=== PATIENT | male | born 1940 | race Caucasian/White ===

== ENCOUNTER 2024-05-27 20:38 | Inpatient (IN) | payer MEDICARE, OTHER, SELFPAY ==
[2024-05-27] VITALS (14 sets, daily range): BP systolic 73–131; BP diastolic 52–92; BMI 29.3; BMI 24.3; BMI 23.6
--- NOTE | 2024-05-27 13:53 | ED.GENMED ---
ED Provider Triage
<Chel Lopez NP - Last Filed: 05/27/24 13:58>
-
Patient seen by provider in Triage?: Seen in Triage
Attestation: A medical screening examination has been initiated by a qualified medical provider. Based on the assessment performed at this time, it has been determined that an emergent medical condition may exist and the patient has been informed
that further medical evaluation and possible additional diagnostic testing may be needed.
HPI: 83-year-old male in assisted living at [facility] states he stopped taking his diuretics 4 to 6 weeks ago because he got tired of urinating so much. Presents now with swelling in his lower extremities. Denies chest pain or trouble
breathing.
Patient states 'the nurse saw my legs and my toes and she said 'you have to get that fluid out of there.' That nurse called patient's daughter to recommend that he come he come here.
GENERAL: Alert , in no apparent distress
EYE: No visual abnormalities.
NECK: Trachea midline
ENT: No visible abnormalities.
LUNGS: No acute respiratory distress
NEUROLOGICAL: Alert and oriented
SKIN: Skin intact. No visible changes.
MUSCULOSKELETAL: Moving extremities normally
PSYCH: Normal and appropriate interaction.
This is a medical evaluation conducted in person to initiate diagnostic evaluation and provide initial therapeutics. Please see further documentation by the treating clinician. Attestation: A medical screening examination has been initiated by a
qualified medical provider. Based on the assessment performed at this time, it has been determined that an emergent medical condition may exist and the patient has been informed that further medical evaluation and possible additional diagnostic
testing may be needed.
History of Present Illness
<Chel Lopez NP - Last Filed: 05/27/24 13:58>
General
Chief Complaint: Swelling
Time Seen by Provider: 05/27/24 17:55
<Modesto Massey MD - Last Filed: 05/28/24 15:29>
General
Source: patient
Exam Limitations: none
Nursing documentation reviewed up to this point in time: agreed with
History of Present Illness
History of Present Illness:
Patient with history of congestive heart failure on Lasix, presents to ED from urgent care center secondary to increased leg swelling. Patient admittedly states that he has not taken his medications, i.e. Lasix over the past 6 weeks, as he did not
wish to go the bathroom frequently. Denies coughing or shortness of breath. Denies fever or chills. Denies coughing. Denies loss of appetite. Denies recent illness.
Review of Systems
<Modesto Massey MD - Last Filed: 05/28/24 15:29>
Review of Systems
Allergies reviewed?: Yes
All Other Systems: ROS reviewed and negative except as documented in HPI and ROS
Constitutional: Reports no symptoms
EENT: Reports no symptoms
Respiratory: Reports no symptoms; Denies cough or trouble breathing
Cardiac: Reports no symptoms; Denies chest pain or palpitations
ABD/GI: Reports no symptoms
Musculoskeletal: Reports edema
Skin: Reports no symptoms
Neurological: Reports no symptoms
Phy Exam
<Modesto Massey MD - Last Filed: 05/28/24 15:29>
Physical Exam
Physical Exam:
Physical Exam
General: no apparent distress, not acutely ill. afebrile
Head: nc/at. eomi
Neck: supple. normal range of motion.
Heart: s1/s2 regular rate and rhythm, no murmur. equal radial pulses.
Lungs: no acute respiratory distress. clear bilaterally
Abdomen: normal bowel sounds. not tender.
Neuro: alert and oriented x 3. no focal neurological deficits
Skin: no rash
Psychiatric: well kept. interactive and cooperative
Extremities: LE b/l pitting edema. RLE - weeping of serosanguineous drainage noted with mild erythema, without warmth or tenderness.
Scores
<Modesto Massey MD - Last Filed: 05/28/24 15:29>
Heart Failure Risk
Heart Failure Risk Score: Yes
History of Stroke or TIA: No
History of intubation for respiratory distress: No
Heart rate on ED arrival >/= 110: Yes
SaO2 <90% on arrival on room air: No
HR >/=110 during 3min walk test (or too ill to perform test): Yes
ECG has acute ischemic changes: No
Urea >/=12mmol/L (BUN 33.6mg/dL): No
Serum CO2>/=35mmol/L: No
Troponin I or T elevated to LA Level (0.4mg/dL): No
NT-proBNP >/=5,000ng/L (5,000pg/ml): No
HF Risk Score: 2
Admission Status: MEDIUM RISK 9.2% Consider observation or discharge to home with homecare & f/u visit to PCP/[employer], or SNF for treatment
Course
<Chel Lopez NP - Last Filed: 05/27/24 13:58>
Orders/Labs/Results
Orders:
Orders
05/27/24 14:05
Complete Blood Count/With Diff Urgent
Comprehensive Metabolic Panel Urgent
Free T4 Urgent
Magnesium Urgent
Comment: ADD ON
NT-proBNP Urgent
Comment: ADD ON
TSH Reflex To Free T4 Urgent
Comment: ADD ON
05/27/24 Dinner
Cholesterol Lowering
At Your Request: Full Participation
Does patient need a safe tray?: No
Cholesterol Lowering: Sodium, 2 Gram
05/27/24 18:02
Electrocardiogram (*1) Urgent
Reason for Study: Tachycardia
EKG- Treatment ONCE
05/27/24 18:03
Add On- LAB Urgent
Tests Added?: ProBNP, magnesium
05/27/24 19:03
Electrocardiogram (*1) Urgent
Reason for Study: Tachycardia
EKG- Treatment ONCE
05/27/24 19:14
Diltiazem HCl [Cardizem] 5 mg IV NOW STA
Furosemide [Lasix] 20 mg IV NOW STA
05/27/24 19:15
Diltiazem 125 mg/125 ml Nss [Cardizem] 125 mg in 125 ml IV PER PROTOCOL
Initial dose in mg/hr, then titrate:: 5
Titrate to keep:: Heart rate 80-100 bpm
Titrate by mg/hr:: 5 mg/hr
Frequency of titrations (minutes):: 15
Maximum dose in mg/hr:: 15
Begin to taper infusion when:: Now
Taper by mg/hr:: 2.5
Frequency of taper (minutes) if patient maintains goal:: 60
Taper to off?: Yes
05/27/24 19:19
CR Chest Portable - 1 View Urgent
Comment:
Reason For Exam: swelling/sob
Reason Study Needs to be Portable: Patient Unstable
05/27/24 20:27
Admit/Transfer Patient As Directed
Co-Sign Provider:
Level of Care: Inpatient admission
Assign to:: IVU
Physician / Group: mary
Diagnosis: chf exacerbation, afib rvr
Reason for Hospitalization: chf exacerbation, afib rvr
Expected length of stay greater than two midnights?: Yes
ELOS- Estimated Length of Stay in days: 2
I certify the patient meets the requirements for IP care: Yes
Code Status As Directed
Resuscitation Status: Full Code
PRN Pain Medication Management As Directed
May give lesser potent ordered pain med per pt: Yes
preference::
Protocol:: Medication orders for pain may be administered in a
manner that supports deferring to patient preference
when the pt is:
- Requesting an ordered lesser potent pain medication.
Least to most potent pain medications are defined
as: acetaminophen < NSAID < tramadol < opioids
(morphine, oxycodone, hydromorphone).
- Requesting a lesser dose of the same medication IF
ORDERED.
- Requesting a less intrusive route of administration
if both routes are prescribed by the provider (PO <
IV).
05/27/24 21:44
Apixaban [Eliquis] 5 mg PO BID
Furosemide [Lasix] 20 mg IV NOW STA
05/27/24 21:44
VTE Contraindication Routine
VTE Mechanical Device Contraindication: Medical Contraindication
Pharmocologic Contraindication: Medical Contraindication
Activity As Directed
Activity Level: As Tolerated
I/O [Intake/ Output] As Directed
Frequency: q12h
Vital Signs As Directed
Frequency: Per unit guidelines
Weight As Directed
Frequency: Daily
05/27/24 22:00
Atorvastatin [Lipitor] 10 mg PO HS
Donepezil [Aricept] 5 mg PO HS
Tamsulosin [Flomax] 0.4 mg PO HS
05/28/24 04:17
Complete Blood Count/With Diff IN AM
Comprehensive Metabolic Panel IN AM
05/28/24 08:00
Finasteride [Proscar] 5 mg PO DAILY
Furosemide [Lasix] 40 mg IV DAILY
Prednisone [Deltasone] 5 mg PO DAILY
Abnormal Lab Results
05/27/24
14:05
RBC 3.97 L 10^6/uL
(4.70-6.10)
MCV 105.8 H fL
(80.0-94.0)
MCH 34.3 H pg
(27.0-31.0)
MCHC 32.4 L g/dL
(33.0-37.0)
Abs Immat Gran (auto) 0.1 H 10^3/uL
(0-0.05)
Absolute Lymphs (auto) 0.5 L 10^3/uL
(1.2-3.4)
Immature Gran % 1.3 H %
(0-0.5)
Neutrophils % 83.2 H %
(42.2-75.2)
Lymphocytes % 7.2 L %
(20.5-51.1)
Chloride 108 H mmol/L
(98-107)
BUN 25 H mg/dl
(9-20)
Creatinine 0.6 L mg/dL
(0.7-1.3)
Calcium 8.3 L mg/dl
(8.4-10.2)
Total Protein 5.6 L g/dl
(6.3-8.2)
TSH (Reflex) 0.46 L uIU/ml
(0.47-4.68)
05/27/24 14:05
05/27/24 14:05
Vital Signs
Initial and Last Documented VS:
Initial Vital Signs
Temp Pulse Resp BP Pulse Ox
98.1 F 72 16 131/92 97
05/27/24 13:48 05/27/24 13:48 05/27/24 13:48 05/27/24 13:48 05/27/24 13:48
Last Documented Vital Signs
Temp Pulse Resp BP Pulse Ox
97.6 F 100 18 81/52 95
05/28/24 11:59 05/28/24 12:36 05/28/24 11:59 05/28/24 12:36 05/28/24 12:30
<Modesto Massey MD - Last Filed: 05/28/24 15:29>
Orders/Labs/Results
Orders:
Orders
05/27/24 14:05
Complete Blood Count/With Diff Urgent
Comprehensive Metabolic Panel Urgent
Free T4 Urgent
Magnesium Urgent
Comment: ADD ON
NT-proBNP Urgent
Comment: ADD ON
TSH Reflex To Free T4 Urgent
Comment: ADD ON
05/27/24 Dinner
Cholesterol Lowering
At Your Request: Full Participation
Does patient need a safe tray?: No
Cholesterol Lowering: Sodium, 2 Gram
05/27/24 18:02
Electrocardiogram (*1) Urgent
Reason for Study: Tachycardia
EKG- Treatment ONCE
05/27/24 18:03
Add On- LAB Urgent
Tests Added?: ProBNP, magnesium
05/27/24 19:03
Electrocardiogram (*1) Urgent
Reason for Study: Tachycardia
EKG- Treatment ONCE
05/27/24 19:14
Diltiazem HCl [Cardizem] 5 mg IV NOW STA
Furosemide [Lasix] 20 mg IV NOW STA
05/27/24 19:15
Diltiazem 125 mg/125 ml Nss [Cardizem] 125 mg in 125 ml IV PER PROTOCOL
Initial dose in mg/hr, then titrate:: 5
Titrate to keep:: Heart rate 80-100 bpm
Titrate by mg/hr:: 5 mg/hr
Frequency of titrations (minutes):: 15
Maximum dose in mg/hr:: 15
Begin to taper infusion when:: Now
Taper by mg/hr:: 2.5
Frequency of taper (minutes) if patient maintains goal:: 60
Taper to off?: Yes
05/27/24 19:19
CR Chest Portable - 1 View Urgent
Comment:
Reason For Exam: swelling/sob
Reason Study Needs to be Portable: Patient Unstable
05/27/24 20:27
Admit/Transfer Patient As Directed
Co-Sign Provider:
Level of Care: Inpatient admission
Assign to:: IVU
Physician / Group: mary
Diagnosis: chf exacerbation, afib rvr
Reason for Hospitalization: chf exacerbation, afib rvr
Expected length of stay greater than two midnights?: Yes
ELOS- Estimated Length of Stay in days: 2
I certify the patient meets the requirements for IP care: Yes
Code Status As Directed
Resuscitation Status: Full Code
PRN Pain Medication Management As Directed
May give lesser potent ordered pain med per pt: Yes
preference::
Protocol:: Medication orders for pain may be administered in a
manner that supports deferring to patient preference
when the pt is:
- Requesting an ordered lesser potent pain medication.
Least to most potent pain medications are defined
as: acetaminophen < NSAID < tramadol < opioids
(morphine, oxycodone, hydromorphone).
- Requesting a lesser dose of the same medication IF
ORDERED.
- Requesting a less intrusive route of administration
if both routes are prescribed by the provider (PO <
IV).
05/27/24 21:44
Apixaban [Eliquis] 5 mg PO BID
Furosemide [Lasix] 20 mg IV NOW STA
05/27/24 21:44
VTE Contraindication Routine
VTE Mechanical Device Contraindication: Medical Contraindication
Pharmocologic Contraindication: Medical Contraindication
Activity As Directed
Activity Level: As Tolerated
I/O [Intake/ Output] As Directed
Frequency: q12h
Vital Signs As Directed
Frequency: Per unit guidelines
Weight As Directed
Frequency: Daily
05/27/24 22:00
Atorvastatin [Lipitor] 10 mg PO HS
Donepezil [Aricept] 5 mg PO HS
Tamsulosin [Flomax] 0.4 mg PO HS
05/28/24 04:17
Complete Blood Count/With Diff IN AM
Comprehensive Metabolic Panel IN AM
05/28/24 08:00
Finasteride [Proscar] 5 mg PO DAILY
Furosemide [Lasix] 40 mg IV DAILY
Prednisone [Deltasone] 5 mg PO DAILY
Abnormal Lab Results
05/27/24
14:05
RBC 3.97 L 10^6/uL
(4.70-6.10)
MCV 105.8 H fL
(80.0-94.0)
MCH 34.3 H pg
(27.0-31.0)
MCHC 32.4 L g/dL
(33.0-37.0)
Abs Immat Gran (auto) 0.1 H 10^3/uL
(0-0.05)
Absolute Lymphs (auto) 0.5 L 10^3/uL
(1.2-3.4)
Immature Gran % 1.3 H %
(0-0.5)
Neutrophils % 83.2 H %
(42.2-75.2)
Lymphocytes % 7.2 L %
(20.5-51.1)
Chloride 108 H mmol/L
(98-107)
BUN 25 H mg/dl
(9-20)
Creatinine 0.6 L mg/dL
(0.7-1.3)
Calcium 8.3 L mg/dl
(8.4-10.2)
Total Protein 5.6 L g/dl
(6.3-8.2)
TSH (Reflex) 0.46 L uIU/ml
(0.47-4.68)
05/27/24 14:05
05/27/24 14:05
Vital Signs
Initial and Last Documented VS:
Initial Vital Signs
Temp Pulse Resp BP Pulse Ox
98.1 F 72 16 131/92 97
05/27/24 13:48 05/27/24 13:48 05/27/24 13:48 05/27/24 13:48 05/27/24 13:48
Last Documented Vital Signs
Temp Pulse Resp BP Pulse Ox
97.6 F 100 18 81/52 95
05/28/24 11:59 05/28/24 12:36 05/28/24 11:59 05/28/24 12:36 05/28/24 12:30
<Modesto Massey MD - Last Filed: 05/28/24 15:29>
MDM/Problems Addressed
MDM/Problems Addressed:
History, exam, along with EKG concerning for new onset rapid atrial fibrillation with evidence of fluid overload. Patient will be started on Cardizem infusion along with IV Lasix. Patient will be admitted for further evaluation and treatment.
<Modesto Massey MD - Last Filed: 05/28/24 15:29>
*EKG
Interpreted by ED Provider?: Yes
EKG Intrepretation Date: 05/27/24
Heart Rate: 127
Rate: tachycardiac
Rhythm: a-fib
Kirby: normal axis
Interval: normal interval
QRS Pattern: normal QRS
*Critical Care Note
Total Time (30-74mins, 75-104mins- exclusive of procedures): Not Applicable
ED Attending Note
<Chel Lopez NP - Last Filed: 05/27/24 13:58>
-
Portions of this chart may have been created with voice recognition software.� Occasional wrong word or��sound alike� substitutions may have occurred due to the inherent limitations of voice recognition software.
Discharge Plan
Departure
Patient Disposition: Admit
Date of Disposition: 05/27/24
Time of Disposition: 19:23
Admit to: Telemetry
Presentation/result/management discussed w/ accepting MD/DO: Hospitalist
Discharge Problem:
Atrial fibrillation, rapid, Fluid overload
Interventions
Interventions:
*Risk Screen - Suicide Last Done: 05/27/24 18:20
*Neglect/Abuse Screening Last Done: 05/27/24 18:20
ED- Fall Risk Assessment Last Done: 05/27/24 19:23
*ED COVID-19 Vaccine History Last Done: 05/27/24 18:20
*Nursing Disposition Last Done: 05/27/24 21:36
ED- Cardiac Assessment Last Done: 05/27/24 19:23
ED- Pulmonary Assessment Last Done: 05/27/24 19:23
ED-Skin Assessment Last Done: 05/27/24 19:23
Discharge Date and Time
Discharge Date/Time: 05/27/24 21:36
[2024-05-27 14:14] LABS: % Basophils 0.3 % (0-2); % Eosinophils 0.8 % (0-6); % Immature Granulocytes 1.3 % (0-0.5); % Lymphocytes 7.2 % (20.5-51.1); % Monocytes 7.2 % (1.7-9.3); % Neutrophils 83.2 % (42.2-75.2); Absolute Eosinophils 0.1 10^3/uL (0-0.7); Absolute Immature Granulocytes 0.1 10^3/uL (0-0.05); Absolute Lymphocytes 0.5 10^3/uL (1.2-3.4); Absolute Monocytes 0.5 10^3/uL (0.1-0.6); Absolute Neutrophils 5.3 10^3/uL (1.4-6.5); Hemoglobin 13.6 g/dL (13.0-18.0); Mean Corp Hgb Conc. 32.4 g/dL (33.0-37.0); Mean Corpuscular Hgb 34.3 pg (27.0-31.0); Mean Corpuscular Volume 105.8 fL (80.0-94.0); Mean Platelet Volume 9.9 fL (7.4-10.4); Nucleated Red Blood Cells % 0 % (-); Platelet Count 219 10^3/uL (130-400); Red Blood Cell Count 3.97 10^6/uL (4.70-6.10); Red Cell Dist. Width 12.8 % (11.5-14.5); White Blood Cell Count 6.4 10^3/uL (4.8-10.8)
[2024-05-27 14:37] LABS: ALT (SGPT) 16 U/L (0-50); AST (SGOT) 29 U/L (17-59); Albumin 3.5 g/dl (3.5-5.0); Alkaline Phosphatase 59 U/L (38-126); Blood Urea Nitrogen 25 mg/dl (9-20); Calcium 8.3 mg/dl (8.4-10.2); Carbon Dioxide 24 mmol/L (22-30); Chloride 108 mmol/L (98-107); Glucose 99 mg/dl (70-99); Potassium 4.7 mmol/L (3.5-5.1); Sodium 140 mmol/L (135-145); Total Bilirubin 1.1 mg/dl (0.2-1.3); Total Protein 5.6 g/dl (6.3-8.2); eGFR > 60.00
[2024-05-27 18:33] LABS: Magnesium 1.9 mg/dl (1.6-2.3)
--- NOTE | 2024-05-27 18:39 | PHANOTE ---
ED REC NOTE- PATIENT DOES NOT KNOW HIS MEDICATION, PATIENT INDEPENDENT LIVING. DAUGHTER DROPPED PATIENT OFF AND LEFT
[2024-05-27 18:52] LABS: NT-proBNP 2830 pg/ml
[2024-05-27] MEDS: CARDIZEM 5 MG IV (19:19)
[2024-05-27] MEDS: LASIX 20 MG IV (19:20)
[2024-05-27] MEDS: CARDIZEM 125 IV (19:20)
--- NOTE | 2024-05-27 20:34 | HPS.HSE ---
Family Physician
-
Family Physician: Alberto Lanier
Chief Complaint
-
swelling
History of Present Illness
83-year-old male past medical history of lower extremity edema, possible remote history of arrhythmia, dementia, BPH, hyperlipidemia, possible psoriatic arthritis, presenting for swelling in his lower extremities. He lives in assisted living at
[facility] and he stopped taking his diuretics for 6 weeks ago but he got tired of urinating so much. Denies chest pain or shortness of breath. Denies palpitations.
He does not have a history of heart failure.
He denies smoking or alcohol use.
Medical History
Past Medical History
Past Medical History: Reports Other (lower extremity edema, possible remote history of arrhythmia, dementia, BPH, hyperlipidemia, possible psoriatic arthritis,)
Past Surgical History: Reports None
Social History
Tobacco: Non-smoker
Alcohol: None
Drug: None
Family History
Family History: Not pertinent
Allergies / Home Medications
Allergies reflects when Allergies were last updated in [employer].
Home Medications with original date entered in [employer]
Allergy/Medication List:
Allergies
Allergy/AdvReac Type Severity Reaction Status Date / Time
No Known Allergies Allergy Verified 05/27/24 13:58
Home Medications
donepezil 5 mg tablet 5 mg PO HS 05/27/24
finasteride 5 mg tablet 5 mg PO DAILY 05/27/24
furosemide 20 mg tablet (Lasix) 60 mg PO DAILY 05/27/24
prednisone 5 mg tablet 5 mg PO DAILY 05/27/24
simvastatin 20 mg tablet (Zocor) 20 mg PO HS 05/27/24
tamsulosin 0.4 mg capsule (Flomax) 0.4 mg PO HS 05/27/24
Review of Systems
-
History Source: Patient
A 12 point ROS was completed and negative except as noted: Yes
Constitutional: Reports No Symptoms
EENT: Reports No Symptoms
Respiratory: Reports See HPI
Cardiac: Reports See HPI
Abdomen/GI: Reports No Symptoms
: Reports No Symptoms
Musculoskeletal: Reports No Symptoms
Skin: Reports No Symptoms
Neurological: Reports No Symptoms
Endocrine: Reports No Symptoms
Hematologic/Lymphatic: Reports No Symptoms
Psych: Reports No Symptoms
Physical Exam
Vital Signs
Vital Signs
Temp Pulse Resp BP Pulse Ox
98.1 F 104 15 102/70 96
05/27/24 13:48 05/27/24 20:00 05/27/24 20:00 05/27/24 20:00 05/27/24 19:45
Physical Exam
General: Well Developed, Well Nourished and No Apparent Distress
HEENT: NormoCephalic, Moist mucous membranes and Atraumatic
Respiratory: Clear
Cardiac: S1/S2, Irregular Rhythm and Peripheral Edema; No Murmur or Rub
GI: Soft, Non Tender, Non Distended and Normal Bowel Sounds; No Organomegaly
Rectal: Deferred by Provider
Musculoskeletal: No Clubbing, No Cyanosis and No Edema
Skin: No Rash
Neuro: Nonfocal/grossly intact
Laboratory Results
-
05/27/24 14:05
05/27/24 14:05
Laboratory Results
Total Bilirubin 1.1 mg/dl (0.2-1.3) 05/27/24 14:05
AST 29 U/L (17-59) 05/27/24 14:05
ALT 16 U/L (0-50) 05/27/24 14:05
Alkaline Phosphatase 59 U/L (38-126) 05/27/24 14:05
Data Reviewed
-
Lab Data: Labs Reviewed by me
Old Records: Reviewed
Impression/Plan
-
IMPRESSION:
PLAN:
# Atrial fibrillation with RVR
-Cardizem drip
-Start Eliquis
-Check TSH
-Cardiology consulted
-Check echo
# Acute CHF exacerbation
-Chest x-ray appears to show pulm edema, report pending
-Check I's and O's, daily weights
- 40 IV Lasix daily
# Edema blistering of lower extremities
-Monitor with diuresis
Chronic lower extreme edema
-On Lasix normally
Dementia
-Continue donepezil
BPH
-Continue tamsulosin, finasteride
Rheumatoid/psoriatic arthritis
-Continue prednisone
Hyperlipidemia
-Continue statin
Full code
DVT prophylaxis�Eliquis
Cardiac diet
[2024-05-27] MEDS: LIPITOR 10 MG PO (22:22)
[2024-05-27] MEDS: ARICEPT 5 MG PO (22:23)
[2024-05-27] MEDS: FLOMAX 0.4 MG PO (22:23)
[2024-05-27] MEDS: ELIQUIS 5 MG PO (22:23)
[2024-05-27 22:54] LABS: TSH Reflex To Free T4 0.46 uIU/ml (0.47-4.68)
[2024-05-27 23:23] LABS: Free T4 1.36 ng/dl (0.78-2.19)
[2024-05-28] VITALS (17 sets, daily range): BP systolic 77–104; BP diastolic 51–71; BMI 23.6; BMI 24.3
--- NOTE | 2024-05-28 00:08 | PTCARENOTE ---
Received patient from ED @ 21:50. Patient awake and oriented x3. Cardizem gtt running @ 10 mL/hr through right AC. BP 97/52, A-Fib with PVCs 120-100, 96% on room air. [place] cath applied due incontinence from lasix-- no control. Discussed plan of
care for evening. Patient verbalized understanding. Call mims within reach.
--- NOTE | 2024-05-28 00:17 | PTCARENOTE ---
Order for Stat Lasix held per Mady Branch NP, due to patient's BP 83/70. Cardizem was turned down to 5 mL/hr @2220. Pt urine is also bloody-- notified Mady Branch NP as well.
[2024-05-28 04:39] LABS: % Basophils 0.4 % (0-2); % Eosinophils 2.8 % (0-6); % Immature Granulocytes 1.3 % (0-0.5); % Lymphocytes 14.1 % (20.5-51.1); % Neutrophils 69.4 % (42.2-75.2); Absolute Eosinophils 0.2 10^3/uL (0-0.7); Absolute Immature Granulocytes 0.1 10^3/uL (0-0.05); Absolute Lymphocytes 0.8 10^3/uL (1.2-3.4); Absolute Monocytes 0.7 10^3/uL (0.1-0.6); Absolute Neutrophils 3.8 10^3/uL (1.4-6.5); Hematocrit 39.3 % (39.0-52.0); Hemoglobin 12.6 g/dL (13.0-18.0); Mean Corp Hgb Conc. 32.1 g/dL (33.0-37.0); Mean Corpuscular Hgb 34.1 pg (27.0-31.0); Mean Corpuscular Volume 106.5 fL (80.0-94.0); Mean Platelet Volume 10.2 fL (7.4-10.4); Nucleated Red Blood Cells % 0 % (-); Platelet Count 202 10^3/uL (130-400); Red Blood Cell Count 3.69 10^6/uL (4.70-6.10); Red Cell Dist. Width 12.6 % (11.5-14.5); White Blood Cell Count 5.4 10^3/uL (4.8-10.8)
[2024-05-28 05:09] LABS: ALT (SGPT) 13 U/L (0-50); AST (SGOT) 20 U/L (17-59); Alkaline Phosphatase 57 U/L (38-126); Blood Urea Nitrogen 21 mg/dl (9-20); Calcium 7.9 mg/dl (8.4-10.2); Carbon Dioxide 28 mmol/L (22-30); Chloride 104 mmol/L (98-107); Estimated Creatinine Clearance 64 ml/min; Glucose 90 mg/dl (70-99); Sodium 138 mmol/L (135-145); Total Bilirubin 1.2 mg/dl (0.2-1.3); Total Protein 5.1 g/dl (6.3-8.2); eGFR > 60.00
[2024-05-28] MEDS: CARDIZEM 125 IV (09:33)
[2024-05-28] MEDS: LASIX 40 MG IV (09:54)
[2024-05-28] MEDS: DELTASONE 5 MG PO (09:55)
[2024-05-28] MEDS: PROSCAR 5 MG PO (09:55)
--- NOTE | 2024-05-28 09:59 | CON.CAR ---
Addendum entered and electronically signed by Edi Valdes MD 05/28/24 11:54:
I saw and examined the patient.
The A&P Technician's note was reviewed and I agree with the note.
Comment: Briefly, 83-year-old man presenting with shortness of breath and lower extremity edema found to be in acute decompensated heart failure and atrial fibrillation with rapid ventricular response
Volume overloaded on exam
Plan for IV Lasix twice daily
Follow daily weights, renal function and electrolytes
Echo performed today shows preserved left ventricular systolic function
Remains in atrial fibrillation and heart rates are suboptimally controlled
Duration of A-fib is unclear possible that this was identified years ago based on the family's report
Attempt rate control with Cardizem drip and metoprolol, wean drip as able
Ideally would be on oral anticoagulation for cardioembolic prophylaxis, but unfortunately has ongoing hematuria. Will plan to start Eliquis when ok from urology perspective.
Original Note:
Consultation
Consultation Request
Date/Time Consultation Requested: 05/27/24 at 2339
Date/Time Consultation Performed: 05/28/24 at 0959
Requesting Provider: Dr. Justice
Performing Provider: Dr. Valdes
Reason for Consultation: Afib with RVR, CHF
Medical History
-
History of Present Illness:
Patient came to ER yesterday with increased LE edema and SOB and was admitted with acute HF and cardiology has been consulted. Patient lives independently at [facility], but follows with a PCP outside of their community and he sees Dr. Dominguez
Yolande. Patient's son-in-law is bedside and helps with HPI's patient has some cognitive deficiencies. Patient son-in-law reports that several years ago patient was seen at an outside ER for abdominal pain and family was told at that time he had
A-fib. It sounds like at that time the patient's second of 3 daughters was managing his care and assured family that she would obtain cardiology follow-up but it does not appear that this ever happened. In the interim the patient's second daughter
has been arrested and is now in correction for financial abuse and stealing money from the patient. Patient's other 2 daughters and their spouses are involved in patient's care. They were unaware if patient was still having A-fib. About 6 weeks ago
the patient stopped taking his Lasix 60 mg daily due to complaints about increased urination. He then had increased LE edema and when seen by a nurse at [facility] was recommended to go to the ER. The details are not clear but it sounds like at
some point he also went to an urgent care and had straight cath performed and is now having hematuria, this all apparently happened before he ever came to . Patient denies palpitations. No CP. He is now stable on room air.
PMH:
Paroxysmal Afib
Not chronically on OAC for unclear reasons
RA
Psoriatic arthritis
BPH
Hyperlipidemia
Past Medical History
Past Medical History: Other (in HPI)
Past Surgical History: None
Social History
Tobacco: Non-Smoker
Alcohol: None
Drug: None
Personal:
Living: Alone (independent living at [facility])
Family History
Family History: Reviewed & Not Pertinent
Allergies / Home Medications
Allergy/AdvReac Type Severity Reaction Status Date / Time
No Known Allergies Allergy Verified 05/27/24 13:58
�Medication �Instructions �Recorded �Confirmed �Type
donepezil 5 mg tablet 5 mg PO 05/27/24 05/27/24 History
finasteride 5 mg tablet 5 mg PO DAILY 05/27/24 05/27/24 History
furosemide 20 mg tablet (Lasix) 60 mg PO DAILY 05/27/24 05/27/24 History
prednisone 5 mg tablet 5 mg PO DAILY 05/27/24 05/27/24 History
simvastatin 20 mg tablet (Zocor) 20 mg PO HS 05/27/24 05/27/24 History
tamsulosin 0.4 mg capsule (Flomax) 0.4 mg PO 05/27/24 05/27/24 History
Review of Systems
-
History Source: Patient and Family (son in law in room helping with HPI)
All other systems: Negative unless noted
Physical Exam
Vital Signs
Temp Pulse Resp BP Pulse Ox
97.4 F 88 18 102/60 95
05/28/24 09:25 05/28/24 09:05 05/28/24 09:25 05/28/24 09:05 05/28/24 09:25
GEN: NAD, AAOx3
HEENT: EOMI, MMM
LUNGS: RA. CTA B/L without wheeze or rales
CV: Afib with aberrancy. Irreg irreg, S1/S2, 05/05 syst LSB
ABD: soft, BS+, NT, ND
EXT: No clubbing, cyanosis or lesions B/L. +1 B/L LE edema
NEURO: Gross non-focal
SKIN: Warm, dry and pink. No rash
Lab Results
05/28/24 04:17
05/28/24 04:17
Zjm-R-Quqlhbawytl Pept 2830 pg/ml 05/27/24 14:05
Impression / Plan
-
PCP: Dr. Alberto Lanier
Card: None
Impression:
Admitted with increased LE edema and SOB 05/27/24
Hematuria
Acute HF unknown EF
Afib with RVR
Paroxysmal Afib
Not chronically on OAC for unclear reasons
RA
Psoriatic arthritis
BPH
Hyperlipidemia
Echo 05/28/2024: Report pending
Plan:
-Patient came to ER yesterday with increased LE edema and SOB and was admitted with acute HF and cardiology has been consulted. Patient lives independently at [facility], but follows with a PCP outside of their community and he sees Dr. Dominguez
Yolande. Patient's son-in-law is bedside and helps with HPI's patient has some cognitive deficiencies. Patient son-in-law reports that several years ago patient was seen at an outside ER for abdominal pain and family was told at that time he had
A-fib. It sounds like at that time the patient's second of 3 daughters was managing his care and assured family that she would obtain cardiology follow-up but it does not appear that this ever happened. In the interim the patient's second daughter
has been arrested and is now in correction for financial abuse and stealing money from the patient. Patient's other 2 daughters and their spouses are involved in patient's care. They were unaware if patient was still having A-fib. About 6 weeks ago
the patient stopped taking his Lasix 60 mg daily due to complaints about increased urination. He then had increased LE edema and when seen by a nurse at [facility] was recommended to go to the ER. The details are not clear but it sounds like at
some point he also went to an urgent care and had straight cath performed and is now having hematuria, this all apparently happened before he ever came to . Patient denies palpitations. No CP. He is now stable on room air.
-ECG x 2 reviewed by me shows A-fib with RVR. Telemetry reviewed by me shows ongoing A-fib with RVR with aberrancy of 2-3 beats at a time that is asymptomatic
-Check echo, EF unknown
-Weight is down 3 pounds overnight with Lasix 40 mg IV daily. Of note patient was taking Lasix 60 mg PO daily prior to admission. Will increase Lasix to 40 mg IV BID, order placed by me
-Pending results of echo we will titrate medical therapy for GDMT. Patient was not taking BB or BRADEN/ARB prior to admission
-Remains in A-fib with RVR. Cardizem gtt running at 5 mg/hr. Will work on adding Toprol-XL and weaning Cardizem gtt throughout the day today
-Patient was started on Eliquis overnight, but noted to have increased hematuria. Patient reports straight cath at an outpatient urgent care within 48 hours of his arrival at and it appears hematuria started with that. Patient has a history of
BPH and is chronically on finasteride and tamsulosin. Patient has a history of straight cath'ing himself at home, but that was years ago. He might need urology consult. For now will hold Eliquis. [id number] is 4
-When cleared from a standpoint will resume Eliquis 2.5 mg BID (age 83, wt 54.9 kg, Cre 0.6)
-Patient is chronically on prednisone 5 mg daily for history of rheumatoid arthritis and psoriatic arthritis
-Check CVE, patient is chronically on simvastatin 20 mg daily but there is no known history of CAD
-TSH low at 0.46, but free T4 is normal at 1.36
--- NOTE | 2024-05-28 10:28 | W.CHA2DS2VAS ---
[id number] Score
Score
Age in Years (65=0, 65-74=1, >/=75=2): > or = 75
Sex (Female=+1): Male
Congestive Heart Failure History (Yes=+1): Yes
Hypertension History (Yes=+1): Yes
Stroke/TIA/Thromboembolism History (Yes=+2): No
Vascular Disease History (Yes=+1): No
Diabetes Mellitus (Yes=+1): No
Score >/=2 is otherwise an anticoagulation candidate: 4
--- NOTE | 2024-05-28 10:39 | PTCARENOTE ---
Pt reported that condom catheter had fallen off. Perineal care given , condom catheter replaced. No outward evidence of trauma to his penis but urine is blood tinged. notified.
[2024-05-28] MEDS: ELIQUIS PO (10:46)
[2024-05-28 11:06] LABS: HDL Cholesterol 69 mg/dl; LDL Cholesterol, Calculated 68 mg/dl; Total Cholesterol 157 mg/dl (50-199); Triglyceride 100 mg/dl (10-149); Very Low Density Lipoprotein 20 mg/dl (0-30)
--- NOTE | 2024-05-28 12:24 | CM ---
CM following for DC planning needs.
Met w/ patient at bedside to complete initial assessment.
Pt. resides at [facility] alone. He is functionally indep. w/ use of a SPC. He receives assistance several days a week with housekeeping and laundry. He also receives assistance with medication mgt.
Pt. has prescription plan and [facility].
Anticipated DC plan is for home without needs versus VN.
Will follow.
[2024-05-28] MEDS: TOPROL XL 25 MG PO ×2 (12:33→21:24)
--- NOTE | 2024-05-28 15:11 | W.PN.HOSP.TC ---
Today's Communication/Plan
-
hold eliquis
rate control
Assessment / Plan
Assessment / Plan
Physical Exam
General: Well Developed, Well Nourished and No Apparent Distress
HEENT: NormoCephalic, Moist mucous membranes and Atraumatic
Respiratory: Clear
Cardiac: S1/S2, Irregular Rhythm and Peripheral Edema; No Murmur or Rub
GI: Soft, Non Tender, Non Distended and Normal Bowel Sounds; No Organomegaly
Rectal: Deferred by Provider
Musculoskeletal: No Clubbing, No Cyanosis and No Edema
Skin: No Rash
Neuro: Nonfocal/grossly intact
# Atrial fibrillation with RVR
-Cardizem drip
-hold eliquis with hematuria - should be on 2.5mg BID once starting
-TFTs wnl
-Cardiology consulted
- Left ventricular ejection fraction is 50-55%; Moderate to severe mitral regurgitation.
# Acute HFpEF
--Chest x-ray appears to show pulm edema, report pending
-Check I's and O's, daily weights
- 40 IV Lasix BID
# Edema blistering of lower extremities
-Monitor with diuresis
#Hematuria
-suspect trauma related; obvious blood in the urine, suspect through trauma with straight caths prior to admission aggravated with eliquis; no evidence of exterior/skin barrier culprit of bleeding
-monitor off eliquis
-if worsening, drop in hgb, or clots - will consult urology
Chronic lower extreme edema
-On Lasix normally
Dementia
-Continue donepezil
BPH
-Continue tamsulosin, finasteride
Rheumatoid/psoriatic arthritis
-Continue prednisone
Hyperlipidemia
-Continue statin
Full code
DVT prophylaxis�SCDs
Cardiac diet
Anticipated Discharge: Today
Subjective/Interval History
-
Date of Service: May 28, 2024
has some pink tinged urine, obvious blood in the urine, suspect through trauma with straight caths prior to admission aggravated with eliquis
Objective Data
-
Labs:
Laboratory Results
05/28/24
04:17
WBC 5.4
Hgb 12.6 L
Hct 39.3
Plt Count 202
Sodium 138
Potassium 4.0
Chloride 104
Carbon Dioxide 28
BUN 21 H
Creatinine 0.6 L
Glucose 90
Calcium 7.9 L
Total Bilirubin 1.2
AST 20
ALT 13
Alkaline Phosphatase 57
Vital Signs:
Vital Signs
Temp Pulse Resp BP Pulse Ox
97.6 F 100 18 81/52 95
05/28/24 11:59 05/28/24 12:36 05/28/24 11:59 05/28/24 12:36 05/28/24 12:30
I&O
05/27/24 05/28/24 05/29/24
06:59 06:59 06:59
Intake Total 65 / 65 240 / 240
Output Total 725 / 725 450 / 450
Balance -660 / -660 -210 / -210
Review of Systems
-
History Source: Patient
All other systems: Not reviewed unless documented
--- NOTE | 2024-05-28 16:56 | PTCARENOTE ---
Urine becoming more consistently yellow in color, eliquis held today. Pt incontinent of bowel and bladder, condom catheter in place. Diltiazem infusion off at @13:00 for SBP in 80's. SBP 77 mid afternoon, pt asymptomatic, OFELIA Clay notified,
second dose of lasix held. Telemetry shows atrial fib with PVC's and couplets. Rates 90-110 at rest , up to 160-170 briefly with activity. Pt at risk to fall, precautions in place. Preventative foams placed on upper back adn heels, pressure wound on
sacrum, right lower leg wound redressed.
[2024-05-28] MEDS: ARICEPT 5 MG PO (21:23)
[2024-05-28] MEDS: LIPITOR 10 MG PO (21:23)
[2024-05-28] MEDS: FLOMAX 0.4 MG PO (21:24)
--- NOTE | 2024-05-28 22:13 | PTCARENOTE ---
Received patient at change of shift. Patient awake and oriented x3 in bed. BP 95/59, A-Fib w/ PVCs, 94% on room air. No c/o SOB or palpitations. Discussed plan of care for evening. Patient verbalized understanding. Call mims within reach.
[2024-05-29] VITALS (14 sets, daily range): BP systolic 71–134; BP diastolic 53–88; PULSE 116; BMI 23.4
[2024-05-29 05:28] LABS: Hematocrit 39.1 % (39.0-52.0); Hemoglobin 12.7 g/dL (13.0-18.0); Mean Corp Hgb Conc. 32.5 g/dL (33.0-37.0); Mean Corpuscular Hgb 33.5 pg (27.0-31.0); Mean Corpuscular Volume 103.2 fL (80.0-94.0); Mean Platelet Volume 10.1 fL (7.4-10.4); Platelet Count 203 10^3/uL (130-400); Red Blood Cell Count 3.79 10^6/uL (4.70-6.10); Red Cell Dist. Width 12.6 % (11.5-14.5); White Blood Cell Count 5.7 10^3/uL (4.8-10.8)
[2024-05-29 05:42] LABS: Blood Urea Nitrogen 24 mg/dl (9-20); Calcium 8.5 mg/dl (8.4-10.2); Carbon Dioxide 32 mmol/L (22-30); Chloride 97 mmol/L (98-107); Estimated Creatinine Clearance 55 ml/min; Glucose 80 mg/dl (70-99); Potassium 4.4 mmol/L (3.5-5.1); Sodium 135 mmol/L (135-145); eGFR > 60.00
[2024-05-29] MEDS: PROSCAR 5 MG PO (08:33)
[2024-05-29] MEDS: TOPROL XL 25 MG PO ×2 (08:33→19:40)
[2024-05-29] MEDS: DELTASONE 5 MG PO (08:33)
--- NOTE | 2024-05-29 08:33 | PN.CDI ---
CDI
- -
CDI:
Physician Documentation Request
Admit Date: 05/27/24 20:38
Dear Doctor Vinh,
Patient admitted for heart failure.
H&P: 'Acute CHF exacerbation...-Chest x-ray appears to show pulm edema, report pending -Check I's and O's, daily weights - 40 IV Lasix daily'
05/28 Hospitalist PN: 'Acute HFpEF'
Clarify which of the following accurately represents the acuity of the HFpEF. Possible options might include:
____ Acute
____ Acute on Chronic
____ Other
Use of terms such as suspected, likely, concern for, or probable (associated with a specific diagnosis that is being evaluated, monitored, or treated as if it exists) are acceptable and can be coded in the inpatient setting, when documented at the
time of discharge.
Thank you,
Arminda Ayala RN, BSN
CDI Specialist
Available via [facility] text
Please use your independent medical judgment in providing your response.
--- NOTE | 2024-05-29 09:15 | CM ---
Priced Faviola thru patient's pharmacy, [facility] and was estimated to be $277.12/month.
Call to patient's RX plan, [employer]- [phone]. They confirmed that this is the cost per month for Eliquis. There is no deductible to satisfy at this time.
Cannot provide any coupons beyond a free 30 d coupon.
--- NOTE | 2024-05-29 10:11 | W.PN.CARDCBS ---
Addendum entered and electronically signed by Arianna Hodges MD 05/29/24 10:57:
I saw and examined the patient.
The Software Quality Analyst's note was reviewed and I agree with the note.
Comment: He continues with shortness of breath.
On exam: He continues with hematuria as noted by Damon bag. Exam still with crackles bilateral. Atrial fibrillation also noted which is not rate controlled and apical holosystolic murmur noted.
Echo reviewed.
-Heart failure with preserved ejection fraction and ejection fraction 50 to 55%
-Moderate to severe mitral regurgitation
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
Telemetry reviewed atrial fibrillation with continued rapid ventricular response. Anticoagulation continues to be on hold given hematuria.
Plan at this time:
Atrial l fibrillation:
-Rate control of atrial fibrillation is limited secondary to hypotension. Continue current dose of Toprol as tolerates. Will add amiodarone for rate control 200 mg twice daily for now and then de-escalate on discharge or once rate control is
achieved. Continue to follow telemetry.
-TSH at baseline is mildly abnormal with normal free T4. Follow closely as an outpatient.
-Oral anticoagulation when able from a hematuria point of view. Recent straight cath with trauma earlier this week as an outpatient.
Heart failure with preserved ejection fraction and moderate to severe mitral regurgitation:
-Intensified IV dose of Lasix
-Follow input/output and daily weights
-Follow labs
-Eventually reassess mitral regurgitation once euvolemic
-
Original Note:
Today's Communication / Plan
-
Lasix 40 mg IV BID starting now, doses had been held due to hypotension
Adding amiodarone 200 mg BID for adjunct rate control due to hypotension
50 min face to face and coordination of care
Impression / Plan
-
PCP: Dr. Alberto Lanier
Card: None
Impression:
Admitted with increased LE edema and SOB 05/27/24
Hematuria
Acute HF unknown EF
Afib with RVR
Paroxysmal Afib
Not chronically on OAC for unclear reasons
RA
Psoriatic arthritis
BPH
Hyperlipidemia
Echo 05/28/2024: EF 50 to 55%, no WMA, mild to moderate LVH, normal RV size and function, moderate to severe MR, aortic sclerosis without stenosis, mild aortic regurgitation, mild to moderate TR with PAP 40 to 45 mmHg
Plan:
-LE edema is better, but continues with ROSA. Lasix increased to 40 mg IV BID 05/28/24, but the evening dose was held due to hypotension. Lasix 40 mg IV BID restarted 05/29/24 AM and will hold for SBP less than 90. Patient was supposed to take Lasix
60 mg PO daily prior to admission, but on his own had stopped about 6 weeks prior to this admission due to complaints about increased urination.
-EF 50 to 55% by echo 05/28/2024. There is no previous echo for comparison and family says the patient was not previously seen by telephone lineman.
-Echo with evidence of moderate to severe MR. Recommend repeat echo once euvolemic.
-Patient was started on Toprol-XL 25 mg twice daily on admission. Patient was not taking any AV sofia blockers prior to admission.
-Patient was not taking BRADEN/ARB/ARNI prior to admission and due to hypotension will defer adding for now
-Patient currently dealing with issues including hematuria and has required self-catheterization in the past so we will defer SGLT2 at this time as well
-Patient was found to be in A-fib with RVR on admission. Cardizem gtt on admission and has now been stopped. HR's remain generally above 100. Might need to add amiodarone for adjunct rate control due to hypotension.
-There was a history of paroxysmal A-fib according to the family, but this was 5+ years ago and was never evaluated. Presumably he has been paroxysmal this time, it seems unlikely that he would have been persistent or permanent throughout this time
and be as rapid as he is now.
-Patient was not on OAC and when Eliquis 5 mg BID x 1 was given on admission he had hematuria. Turns out he had a straight cath at urgent [facility] this past Sunday. Eventually start Eliquis 2.5 mg BID (age 83, wt 54.9 kg, Cre 0.6) if
hematuria improves.
-Would not pursue COOKIE/CV in the setting of hematuria
-Patient is chronically on prednisone 5 mg daily for history of rheumatoid arthritis and psoriatic arthritis
-LDL 68, patient is chronically on simvastatin 20 mg daily but there is no known history of CAD
-TSH low at 0.46, but free T4 is normal at 1.36
HPI: Patient came to ER yesterday with increased LE edema and SOB and was admitted with acute HF and cardiology has been consulted. Patient lives independently at [facility], but follows with a PCP outside of their community and he sees
Alberto Lanier. Patient's son-in-law is bedside and helps with HPI's patient has some cognitive deficiencies. Patient son-in-law reports that several years ago patient was seen at an outside ER for abdominal pain and family was told at that time he
had A-fib. It sounds like at that time the patient's second of 3 daughters was managing his care and assured family that she would obtain cardiology follow-up but it does not appear that this ever happened. In the interim the patient's second
daughter has been arrested and is now in fpc for financial abuse and stealing money from the patient. Patient's other 2 daughters and their spouses are involved in patient's care. They were unaware if patient was still having A-fib. About 6
weeks ago the patient stopped taking his Lasix 60 mg daily due to complaints about increased urination. He then had increased LE edema and when seen by a nurse at [facility] was recommended to go to the ER. The details are not clear but it
sounds like at some point he also went to an urgent care and had straight cath performed and is now having hematuria, this all apparently happened before he ever came to . Patient denies palpitations. No CP. He is now stable on room air.
Progress Note - Knife Glazer
Subjective
Date of Service: May 29, 2024
He says his arthritis hurts and he wants to go back to bed, he is impressed with LE edema improvement
Objective
Labs:
05/29/24 04:43
05/29/24 04:43
Labs
Hgb 12.7 g/dL (13.0-18.0) L 05/29/24 04:43
Hct 39.1 % (39.0-52.0) 05/29/24 04:43
Plt Count 203 10^3/uL (130-400) 05/29/24 04:43
Sodium 135 mmol/L (135-145) 05/29/24 04:43
Potassium 4.4 mmol/L (3.5-5.1) 05/29/24 04:43
BUN 24 mg/dl (9-20) H 05/29/24 04:43
Creatinine 0.7 mg/dL (0.7-1.3) 05/29/24 04:43
Glucose 80 mg/dl (70-99) 05/29/24 04:43
Vital Signs and I&O:
Vital Signs
Temp Pulse Resp BP Pulse Ox
97.7 F 108 20 96/56 94
05/29/24 07:43 05/29/24 07:46 05/29/24 07:43 05/29/24 07:46 05/29/24 08:27
Vital Signs
Temp Pulse Resp BP Pulse Ox
97.7 F 108 20 96/56 94
05/29/24 07:43 05/29/24 07:46 05/29/24 07:43 05/29/24 07:46 05/29/24 08:27
Intake & Output
05/27/24 05/28/24 05/29/24 05/30/24
06:59 06:59 06:59 06:59
Intake Total 65 / 65 240 / 240
Output Total 725 / 725 1350 / 1350 600 / 600
Balance -660 / -660 -1110 / -1110 -600 / -600
Physical Exam
Physical Exam
GEN: NAD, AAOx3
HEENT: EOMI, MMM
LUNGS: RA. No audible wheeze
CV: Afib with aberrancy.
ABD: ND
EXT: Trace B/L LE edema
NEURO: Gross non-focal
SKIN: Warm, dry and pink. No rash
[2024-05-29] MEDS: LASIX 40 MG IV (11:31)
[2024-05-29] MEDS: PACERONE 200 MG PO ×2 (11:31→19:40)
--- NOTE | 2024-05-29 11:59 | CM ---
Addendum entered by GATO Potts 05/29/24 15:19:
Spoke w/ Amanda and with family. Patient's transition to Assisted Living is not imminent; no formal plans have been made.
Pt. will need skilled rehab at DC, per discussion w/ RN + PT.
Met w/ patient and dtr., Marely and MICHAEL Us at bedside. We reviewed DC plan for SNF. Pt. would prefer [facility] SNF.
Referral made. Await response.
Original Note:
CM following for DC planning needs.
Collaborated w/ RN- patient needs therapy to maximize functional mobility and assess for DC needs.
Met w/ patient at bedside. Pt. pleasant, cooperative. He advises that his dtr. is assisting w/ moving him in to ? assisted living at [facility] on Sat.
PT-OT needed; TT to MD to request eval.
Attempted to reach dtr., Marely- [phone]. Unable to leave a voicemail. Will re-attempt.
Did place call to [facility] liaisonAmanda for collateral information/ confirmation on above. She is investigating and will call me back.
DC plan unknown at this time; dependent on PT eval.
--- NOTE | 2024-05-29 14:57 | WOUNDNOTE ---
R ELBOW (LATERAL DISTAL)
--- NOTE | 2024-05-29 14:58 | WOUNDNOTE ---
[facility] RN note: Patient admitted with CHF exacerbation, a fib, hematuria, LE edema. Patient lives alone and spends all day on his sofa watching TV. Plan is possible SNF when discharged.
See H&P for complete history.
PMH: Arrhythmia (Eliquis), dementia, arthritis, chronic LE edema.
Wound Location and type/assessment: Patient admitted with: Several small scabbed scratch vilchis LLE. Several linear dermal scratch vilchis r/t his toenails and LE edema. Trace LE edema. LE edema much improved as per patient. +Pedal pulses. Small
healing stage 2 sacral pressure injury. Skin on heels intact.
Appetite: po intact documented 100%.
Pressure redistribution devices in place: Centrella Max air bed. Air chair cushion. Patient can turn self in bed.
Plan: Silicone border foam maintained on sacrum. Protective spine silicone foam maintained. Protective foam changed on heels. Patient instructed pressure injury prevention measures. Heels off bed with pillow.
Will confirm orders with hospitalist and discussed with CLAUDIA Yeh.
Care plan to be updated. Will sign off. Call if needed.
Note to case management requested for discharge: VN if goes home.
Recommend follow up at wound care center upon discharge if needed.
--- NOTE | 2024-05-29 15:02 | W.PN.HOSP.TC ---
Today's Communication/Plan
-
toprol, amiodarone
restart eliquis tomorrow if continues to not have hematuria/acute blood loss anemia
Assessment / Plan
Assessment / Plan
Physical Exam
General: Well Developed, Well Nourished and No Apparent Distress
HEENT: NormoCephalic, Moist mucous membranes and Atraumatic
Respiratory: Clear
Cardiac: S1/S2, Irregular Rhythm and Peripheral Edema; No Murmur or Rub
GI: Soft, Non Tender, Non Distended and Normal Bowel Sounds; No Organomegaly
Rectal: Deferred by Provider
Musculoskeletal: No Clubbing, No Cyanosis and No Edema
Skin: No Rash
Neuro: Nonfocal/grossly intact
# Atrial fibrillation with RVR
-Continue Toprol
� Amiodarone started
� Restart anticoagulation tomorrow morning if hemoglobin remains stable and no more hematuria
-TFTs wnl, follow-up outpatient
-Cardiology consulted
- Left ventricular ejection fraction is 50-55%; Moderate to severe mitral regurgitation.
# Acute HFpEF
--Chest x-ray appears to show pulm edema, report pending
-Check I's and O's, daily weights
- 40 IV Lasix BID
# Edema blistering of lower extremities
-Monitor with diuresis
#Hematuria, resolved
-suspect trauma related; obvious blood in the urine, suspect through trauma with straight caths prior to admission aggravated with eliquis; no evidence of exterior/skin barrier culprit of bleeding
-monitor off eliquis, can resume tomorrow if no further evidence of bleeding
-if worsening, drop in hgb, or clots - will consult urology
Chronic lower extreme edema
-On Lasix normally
Dementia
-Continue donepezil
BPH
-Continue tamsulosin, finasteride
Rheumatoid/psoriatic arthritis
-Continue prednisone
Hyperlipidemia
-Continue statin
Full code
DVT prophylaxis�SCDs
Cardiac diet
Anticipated Discharge: 24 - 48 hours
Subjective/Interval History
-
Date of Service: May 29, 2024
Hematuria resolved
Objective Data
-
Labs:
Laboratory Results
05/29/24
04:43
WBC 5.7
Hgb 12.7 L
Hct 39.1
Plt Count 203
Sodium 135
Potassium 4.4
Chloride 97 L
Carbon Dioxide 32 H
BUN 24 H
Creatinine 0.7
Glucose 80
Calcium 8.5
Vital Signs:
Vital Signs
Temp Pulse Resp BP Pulse Ox
97.6 F 122 18 108/88 97
05/29/24 12:24 05/29/24 14:30 05/29/24 12:24 05/29/24 13:53 05/29/24 12:24
I&O
05/28/24 05/29/24 05/30/24
06:59 06:59 06:59
Intake Total 65 / 65 240 / 240
Output Total 725 / 725 1350 / 1350 1924
Balance -660 / -660 -1110 / -1110 -1924 /
Review of Systems
-
History Source: Patient
All other systems: Not reviewed unless documented
Data Reviewed
-
Diagnostic Radiology: Report Reviewed by me
Ultrasound: Report Reviewed by me
Labs: Labs Reviewed by me
[2024-05-29] MEDS: LASIX IV (15:48)
--- NOTE | 2024-05-29 18:12 | PTCARENOTE ---
Pt remains in atrial fib with frequent PVC's adn occasional couplets. Rate @115 at rest up to 150 briefly with activity. SBP's can be 70-80's, pt asymptomatic, OFELIA Clay aware. Pt has diuresed @2800mls after 40mgs of IV lasix , second dose
held per OFELIA Clay, due to low BP. Pt's urine is much clearer, he reports feeling slight discomfort inside his urethra when he urinates into condom catheter. Wounds assessed by KISHAN Bazzi today. PT saw pt, he is unable to sit for
long secondary to arthritis and states he would much prefer to be on his side in bed. Pt is incontinent of soft stool. Case management involved in DC plan for skilled care at [facility], pt agrees that he needs more help and cannot look after
himself.
[2024-05-29] MEDS: FLOMAX 0.4 MG PO (22:16)
[2024-05-29] MEDS: ARICEPT 5 MG PO (22:16)
[2024-05-29] MEDS: LIPITOR 10 MG PO (22:16)
--- NOTE | 2024-05-29 22:49 | PTCARENOTE ---
Received patient at change of shift. Afib on the monitor with PVCs. HR in the 90s. Pt incontinent, condom cath in place. No complaints from pt at this time, call mims within reach.
[2024-05-30] VITALS (10 sets, daily range): BP systolic 69–117; BP diastolic 43–93; BMI 22.3
[2024-05-30 06:01] LABS: Hematocrit 39.9 % (39.0-52.0); Hemoglobin 13.4 g/dL (13.0-18.0); Mean Corp Hgb Conc. 33.6 g/dL (33.0-37.0); Mean Corpuscular Hgb 34.4 pg (27.0-31.0); Mean Corpuscular Volume 102.3 fL (80.0-94.0); Mean Platelet Volume 10.3 fL (7.4-10.4); Platelet Count 209 10^3/uL (130-400); Red Cell Dist. Width 12.6 % (11.5-14.5); White Blood Cell Count 5.5 10^3/uL (4.8-10.8)
[2024-05-30 08:09] LABS: Blood Urea Nitrogen 26 mg/dl (9-20); Calcium 8.9 mg/dl (8.4-10.2); Carbon Dioxide 30 mmol/L (22-30); Chloride 97 mmol/L (98-107); Estimated Creatinine Clearance 55 ml/min; Glucose 79 mg/dl (70-99); Magnesium 1.9 mg/dl (1.6-2.3); Potassium 4.3 mmol/L (3.5-5.1); Sodium 131 mmol/L (135-145); eGFR > 60.00
[2024-05-30] MEDS: ELIQUIS 2.5 MG PO ×2 (09:10→21:14)
[2024-05-30] MEDS: TOPROL XL 25 MG PO (09:10)
[2024-05-30] MEDS: PACERONE 200 MG PO (09:10)
[2024-05-30] MEDS: PROSCAR 5 MG PO (09:10)
[2024-05-30] MEDS: DELTASONE 5 MG PO (09:11)
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
--- NOTE | 2024-05-30 11:12 | CM ---
Addendum entered by GATO Potts 05/30/24 15:28:
Spoke w/ Amanda @ [facility]. Bed would be available over the weekend if medically stable for DC.
I placed call to dtrMarely to provide update. She is out of town but states that her sister, Ruba will be in the hospital tomorrow. Marely- [phone].
Met w/ patient at bedside. He is aware and agreeable to transfer to [facility] SNF, if stable over the weekend.
If medically stable over the weekend---
RN to contact to notify of DC:
Josephine/ Sunday @ [phone]
Amanda/ Sunday @ [phone]
*Patient will need COVID test within 24 h of DC*- Attg. aware
*[facility] requesting a PU time NO LATER THAN 1PM*
<del>Plan-</del> <del>Anns</del> <del>Choice</del> <del>SNF</del>
<del>RN</del> <del>report-</del> <del>[phone]</del>
<del>Nmz-[phone]</del>
Original Note:
CM following for DC planning needs.
Anticipated DC plan is for jail placement, ideally at [facility].
Referral made, awaiting bed availability + response. I left voicemail message for admissions liaisonAmanda on this date.
Met w/ patient at bedside. He is pleasant, feels well.
Will update dtr.Marely once I hear from [facility].
--- NOTE | 2024-05-30 14:45 | PN.CDI ---
CDI
- -
CDI:
Physician Documentation Request
Admit Date: 05/27/24 20:38
Dear Doctor Vinh,
Patient admitted with heart failure.
05/29 Wound Note: 'Small healing stage 2 sacral pressure injury.'
Physician documentation of the type and location of wounds is required for compliant documentation. Based on the above clinical findings and your assessment, please provide the following in your progress note:
1. Location of the ulcer/wound, including laterality.
2. Type (etiology) of ulcer/wound:
- Diabetic ulcer
- Arterial (ischemic) ulcer
- Traumatic wound
- Venous stasis ulcer
- Pressure (decubitus) ulcer
- Non-healing surgical wound
- Other
- Unable to determine
3. For a non-pressure ulcer, please indicate the depth/severity:
- Limited to the breakdown of skin
- With fat layer exposed
- With necrosis of muscle
- With necrosis of bone
- Other
- Unable to determine
4. If a pressure ulcer, please also include the stage* of the ulcer:
- Stage 1 - Skin intact, non-blanchable redness
- Stage 2 - Partial thickness loss of dermis, includes intact or open blister
- Stage 3 - Full thickness tissue not including bone, tendon or muscle
- Stage 4 - Full thickness tissue loss, including exposed bone, tendon or muscle
- Unstageable - Full thickness loss in which the base of the ulcer is covered by slough (yellow, chan, logan, green or brown) and/or eschar (chan, brown or black) in the wound bed.
- Unable to determine
Use of terms such as suspected, likely, concern for, or probable (associated with a specific diagnosis that is being evaluated, monitored, or treated as if it exists) are acceptable and can be coded in the inpatient setting, when documented at the
time of discharge.
Thank you,
Arminda Ayala RN, BSN
CDI Specialist
Available via [employer] text
Please use your independent medical judgment in providing your response.
*Source: National Pressure Ulcer Advisory Panel (NPUAP)
[2024-05-30] MEDS: LASIX IV (14:56)
--- NOTE | 2024-05-30 16:04 | W.PN.HOSP.TC ---
Addendum entered and electronically signed by Jaspal Justice MD 05/30/24 17:21:
Small healing stage 2 sacral pressure injury
Original Note:
Today's Communication/Plan
-
Restart Eliquis, monitor for recurrent hematuria
Continue amiodarone, Toprol
Assessment / Plan
Assessment / Plan
Physical Exam
General: Well Developed, Well Nourished and No Apparent Distress
HEENT: NormoCephalic, Moist mucous membranes and Atraumatic
Respiratory: Clear
Cardiac: S1/S2, Irregular Rhythm and Peripheral Edema; No Murmur or Rub
GI: Soft, Non Tender, Non Distended and Normal Bowel Sounds; No Organomegaly
Rectal: Deferred by Provider
Musculoskeletal: No Clubbing, No Cyanosis and No Edema
Skin: No Rash
Neuro: Nonfocal/grossly intact
# Atrial fibrillation with RVR
-Continue Toprol
� Amiodarone
� Restart anticoagulation, Eliquis 2.5 mg twice daily and monitor
-TFTs wnl, follow-up outpatient
-Cardiology consulted
- Left ventricular ejection fraction is 50-55%; Moderate to severe mitral regurgitation.
# Acute HFpEF
--Chest x-ray appears to show pulm edema, report pending
-Check I's and O's, daily weights
- 40 IV Lasix BID�transition to p.o. 40 mg Lasix daily
# Edema blistering of lower extremities
-Monitor with diuresis
#Hematuria, resolved
-suspect trauma related; obvious blood in the urine, suspect through trauma with straight caths prior to admission aggravated with eliquis; no evidence of exterior/skin barrier culprit of bleeding
-monitor off eliquis, can resume tomorrow if no further evidence of bleeding
-Restart Eliquis today monitor
Chronic lower extreme edema
-On Lasix normally
Dementia
-Continue donepezil
BPH
-Continue tamsulosin, finasteride
Rheumatoid/psoriatic arthritis
-Continue prednisone
Hyperlipidemia
-Continue statin
Full code
DVT prophylaxis�SCDs
Cardiac diet
Anticipated Discharge: Within 24 hours
Subjective/Interval History
-
Date of Service: May 30, 2024
No hematuria
Objective Data
-
Labs:
Laboratory Results
05/30/24 05/30/24
04:56 07:06
WBC 5.5
Hgb 13.4
Hct 39.9
Plt Count 209
Sodium Cancelled 131 L
Potassium Cancelled 4.3
Chloride Cancelled 97 L
Carbon Dioxide Cancelled 30
BUN Cancelled 26 H
Creatinine Cancelled 0.7
Glucose Cancelled 79
Calcium Cancelled 8.9
Vital Signs:
Vital Signs
Temp Pulse Resp BP Pulse Ox
98 F 91 20 117/93 92
05/30/24 15:32 05/30/24 14:30 05/30/24 15:32 05/30/24 12:26 05/30/24 15:32
I&O
05/29/24 05/30/24 05/31/24
06:59 06:59 06:59
Intake Total 240 / 240
Output Total 1350 / 1350 3725 / 3725
Balance -1110 / -1110 -3725 / -3725
Review of Systems
-
History Source: Patient
All other systems: Not reviewed unless documented
Data Reviewed
-
Diagnostic Radiology: Report Reviewed by me
Ultrasound: Report Reviewed by me
Labs: Labs Reviewed by me
[2024-05-30 17:26] LABS: COVID-19 Antigen Negative (Negative)
--- NOTE | 2024-05-30 19:23 | PTCARENOTE ---
Pt resting in bed for most of the day. Eliquis restarted, pt passing consistently yellow urine. Telemetry continues to show atrial fib with occasional PVC's and couplets, rates 80-90 at rest, briefly up to 150 with activity. SBP's 84-117 today. Plan
for possible DC to SNF at [facility] on 05/31 if medically stable.
[2024-05-30] MEDS: FLOMAX 0.4 MG PO (21:14)
[2024-05-30] MEDS: LIPITOR 10 MG PO (21:14)
[2024-05-30] MEDS: ARICEPT 5 MG PO (21:14)
--- NOTE | 2024-05-31 01:58 | PTCARENOTE ---
BP @ 1999 84/[address] Conchita Abel notified and ordered to hold pm dose 50 mg Toprol XL and ordered to decrease dose to 25 mg Toprol XL BID.
[2024-05-31 03:29] VITALS: BP 109/93
[2024-05-31 04:07] LABS: Hematocrit 40.6 % (39.0-52.0); Hemoglobin 13.4 g/dL (13.0-18.0); Mean Corpuscular Hgb 33.7 pg (27.0-31.0); Mean Platelet Volume 9.9 fL (7.4-10.4); Platelet Count 210 10^3/uL (130-400); Red Blood Cell Count 3.98 10^6/uL (4.70-6.10); Red Cell Dist. Width 12.3 % (11.5-14.5); White Blood Cell Count 5.6 10^3/uL (4.8-10.8)
[2024-05-31 04:22] LABS: Blood Urea Nitrogen 27 mg/dl (9-20); Calcium 9.2 mg/dl (8.4-10.2); Carbon Dioxide 32 mmol/L (22-30); Chloride 96 mmol/L (98-107); Estimated Creatinine Clearance 48 ml/min; Glucose 97 mg/dl (70-99); Potassium 4.9 mmol/L (3.5-5.1); Sodium 134 mmol/L (135-145); eGFR > 60.00
[2024-05-31 06:00] VITALS: BMI 21.4
[2024-05-31 08:12] VITALS: BP 95/70
[2024-05-31] MEDS: DELTASONE 5 MG PO (08:56)
[2024-05-31] MEDS: PROSCAR 5 MG PO (08:56)
[2024-05-31] MEDS: ELIQUIS 2.5 MG PO (08:57)
--- NOTE | 2024-05-31 10:37 | PTCARENOTE ---
Pt's morning dose of metoprolol held due to low BP 95/52. Pt denies lightheadedness.
[2024-05-31 11:39] VITALS: BP 96/73
--- NOTE | 2024-05-31 11:54 | W.PN.HOSP.TC ---
Addendum entered and electronically signed by Jaspal Justice MD 05/31/24 16:57:
[id number]
Original Note:
Today's Communication/Plan
-
Toprol 12.5 mg twice daily
Continue furosemide 40 mg daily
Apixaban 2.5 mg twice daily
Follow-up cardiology, PCP outpatient
Follow-up BMP outpatient
Assessment / Plan
Assessment / Plan
Physical Exam
General: Well Developed, Well Nourished and No Apparent Distress
HEENT: NormoCephalic, Moist mucous membranes and Atraumatic
Respiratory: Clear
Cardiac: S1/S2, Irregular Rhythm and Peripheral Edema; No Murmur or Rub
GI: Soft, Non Tender, Non Distended and Normal Bowel Sounds; No Organomegaly
Rectal: Deferred by Provider
Musculoskeletal: No Clubbing, No Cyanosis and No Edema
Skin: No Rash
Neuro: Nonfocal/grossly intact
# Atrial fibrillation with RVR
-Continue Toprol, reduce to 12.5 mg twice daily due to lower blood pressures
� Stop amiodarone
� Restart anticoagulation, Eliquis 2.5 mg twice daily and monitor
-TFTs wnl, follow-up outpatient
-Cardiology consulted
- Left ventricular ejection fraction is 50-55%; Moderate to severe mitral regurgitation.
# Acute HFpEF
--Chest x-ray appears to show pulm edema, report pending
-Check I's and O's, daily weights
- 40 IV Lasix BID�transition to p.o. 40 mg Lasix daily
# Edema blistering of lower extremities
-Monitor with diuresis
#Hematuria, resolved
-suspect trauma related; obvious blood in the urine, suspect through trauma with straight caths prior to admission aggravated with eliquis; no evidence of exterior/skin barrier culprit of bleeding
-monitor off eliquis, can resume tomorrow if no further evidence of bleeding
-Eliquis started and clear
Chronic lower extreme edema
-On Lasix normally
Dementia
-Continue donepezil
BPH
-Continue tamsulosin, finasteride
Rheumatoid/psoriatic arthritis
-Continue prednisone
Hyperlipidemia
-Continue statin
Full code
DVT prophylaxis�Eliquis
Cardiac diet
More than 30 minutes spent in discharge including
Final examination of the patient
Summarizing hospital stay
Instructions for continuing care to all relevant caregivers
Preparation of discharge records, prescriptions, and referral forms
Total time spent (36 in minutes):
Anticipated Discharge: Today
Subjective/Interval History
-
Date of Service: May 31, 2024
Mildly lower blood pressures this morning
Objective Data
-
Labs:
Laboratory Results
05/31/24
03:34
WBC 5.6
Hgb 13.4
Hct 40.6
Plt Count 210
Sodium 134 L
Potassium 4.9
Chloride 96 L
Carbon Dioxide 32 H
BUN 27 H
Creatinine 0.8
Glucose 97
Calcium 9.2
Vital Signs:
Vital Signs
Temp Pulse Resp BP Pulse Ox
98.5 F 112 18 95/70 94
05/31/24 03:30 05/31/24 08:12 05/31/24 03:30 05/31/24 08:58 05/31/24 08:52
I&O
05/30/24 05/31/24 06/01/24
06:59 06:59 06:59
Intake Total 120 / 120
Output Total 3725 / 3725 1100 / 1100
Balance -3725 / -3725 -980 / -980
Review of Systems
-
History Source: Patient
All other systems: Not reviewed unless documented
Data Reviewed
-
Diagnostic Radiology: Report Reviewed by me
Ultrasound: Report Reviewed by me
Labs: Labs Reviewed by me
--- NOTE | 2024-05-31 12:08 | W.DS.TRANS ---
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
-
Discharge Instructions:
Sleep Apnea Risk Intermediate
Discharge Diagnosis/Procedures # Atrial fibrillation with RVR
# Acute HFpEF
Diet 2 Gram Sodium,Restrict fluids to 48 oz
Activity As tolerated
Blood Work BMP in 1 week
Specialty Instructions Weigh Daily
Instructions: *PCP/Other Auger Press Operator Heart Failure Instructions
Stand-Alone Forms:
Changes to Home Medications: Yes
Discharge Medications:
DC Medications w/original date entered in [employer]
donepezil 5 mg tablet 5 mg PO HS Neurological Condition 05/27/24
finasteride 5 mg tablet 5 mg PO DAILY 05/27/24
prednisone 5 mg tablet 5 mg PO DAILY 05/27/24
simvastatin 20 mg tablet (Zocor) 20 mg PO HS High Cholesterol 05/27/24
tamsulosin 0.4 mg capsule (Flomax) 0.4 mg PO HS Urinary Issue 05/27/24
apixaban 2.5 mg tablet (Eliquis) 2.5 mg PO BID #0 tabs 05/31/24
furosemide 40 mg tablet 40 mg PO DAILY #0 tabs 05/31/24
metoprolol succinate 25 mg tablet,extended release 24 hr 12.5 mg (1/2 x 25 mg) PO BID #0 tabs 05/31/24
Home Medication Changes
apixaban 2.5 mg tablet (Eliquis) 2.5 mg PO BID #0 tabs 05/31/24
furosemide 40 mg tablet 40 mg PO DAILY #0 tabs 05/31/24
metoprolol succinate 25 mg tablet,extended release 24 hr 12.5 mg (1/2 x 25 mg) PO BID #0 tabs 05/31/24
Pending Results: No
[2024-05-31] MEDS: TOPROL XL 12.5 MG PO (12:28)
--- NOTE | 2024-05-31 13:05 | PTCARENOTE ---
[facility] notified of Pt discharge, spoke with Josephine. Report called to nurse, Meliton. Pt's daughter Ruba to transport Pt to [facility].
--- NOTE | 2024-05-31 13:42 | PTCARENOTE ---
Pt HR 150's when he was unable to open a soda can and his ice cream container. HE was also frustrated that his daughter had not yet arrived. Assisted Pt with his lunch tray, assured him that his daughter was on her way (after speaking with her on
phone). Pt then calmer and HR down to lower 100's. Dr Justice aware.
--- NOTE | 2024-05-31 14:14 | PTCARENOTE ---
Pt daughter arrived, as per an earlier phone conversation with her, she was not aware that she was going to be transporting her dad to [facility]. However, she is willing to do. Nsg staff assisted Pt to car, Pt transferred easily to wheelchair and
then to car. Staff at [facility] will assist when he arrives, as per Josephine at [facility].
[2024-05-31 14:48] VITALS: BP 92/68
--- NOTE | 2024-06-02 11:17 | W.HF.CON ---
Heart Failure
- LV Function
Left ventricular function study result: LV Ejection fraction >/= 50%
Ejection Fraction Percentage: 50-55
- ARNI
Patient already on ARNI: No
Heart Failure ARNI Not Indicated: LV Ejection Fraction >/= 40%
- ACEI/ARB
Patient already on ACEI/ARB: No
Heart Failure ACEI/ARB Not Indicated: LV Ejection Fraction > 40%
- Beta Reji
Patient already on Evidence Based Beta Reji: Yes
- Mineralocorticord Receptor Antagonist
Patient already on MRA: No
Heart Failure MRA Not Indicated: LV Ejection Fraction > 40%
- SGLT-2 Inhibitor
Patient already on SGLT-2 Inhibitor: No
Heart Failure SGLT-2 Inhibitor Not Indicated: LV Ejection Fraction >40%
- Afib Anticoagulation
Patient already on Anticoagulation for Afib: Yes
- NYHA CHF Classification
NYHA CHF Classification Level: Class III - Symptoms w/ min exertion, interferes w/ nml daily activity
- ACC/AHA Stage
ACC/AHA Stage: Stage C: Symptomatic Heart Failure
== END 2024-05-31 14:42 | DRG 308 ==
LOC: IVU 20:38
PROVIDERS: Registered Nurse; ADMITTING PHYSICIAN Hospitalist; ATTENDING PHYSICIAN Internal Medicine; EMERGENCY PHYSICIAN Emergency Medicine; FAMILY PHYSICIAN Internal Medicine; OTHER PHYSICIAN Internal Medicine Cardiovascular Disease
DX: I48.91 Unspecified atrial fibrillation (principal); I50.31 Acute diastolic (congestive) heart failure; D68.32 Hemorrhagic disorder due to extrinsic circulating anticoagulants; D62 Acute posthemorrhagic anemia; E78.5 Hyperlipidemia, unspecified; F03.90 Unspecified dementia, unspecified severity, without behavioral disturbance, psychotic disturbance, mood disturbance, and anxiety; M06.9 Rheumatoid arthritis, unspecified; N40.0 Benign prostatic hyperplasia without lower urinary tract symptoms; L89.152 Pressure ulcer of sacral region, stage 2; T50.1X6A Underdosing of loop [high-ceiling] diuretics, initial encounter; R31.9 Hematuria, unspecified; I34.0 Nonrheumatic mitral (valve) insufficiency; T45.515A Adverse effect of anticoagulants, initial encounter; Z91.128 Patient's intentional underdosing of medication regimen for other reason; Z79.52 Long term (current) use of systemic steroids; Z79.899 Other long term (current) drug therapy
CPT/HCPCS: 71045; 76770; 80048; 80053; 80061; 83735; 83880; 84439; 84443; 85025; 85027; 87070; 87811; 93005; 93306; 96374; 96375; 96376; 97163; 97167; 99285

== ENCOUNTER 2024-09-13 05:06 | Emergency (ER) | payer MEDICARE, OTHER, SELFPAY ==
[2024-09-13 05:08] VITALS: BP 114/80
[2024-09-13 05:15] VITALS: BP 114/80
--- NOTE | 2024-09-13 07:57 | ED.GENMED ---
History of Present Illness
General
Chief Complaint: Fall
Source: patient
Time Seen by Provider: 09/13/24 07:30
History of Present Illness
History of Present Illness:
84-year-old male with past medical history of atrial fibrillation, CHF, BPH presenting to the emergency department via EMS from the [facility] for evaluation after he was trying to transition from his bed to the wheelchair around 4 AM,
states the wheelchair started to slide causing him to fall forward onto his face and sustaining skin tears to the right upper arm, right knee and a hematoma to the left wrist. At time of my exam patient states he has no concerns and is without any
pain. He believes tetanus vaccine is up-to-date. Denies any loss of consciousness, vomiting, visual changes, headache, blurred or double vision or any other concerns. He does note maybe 1 other fall within the last year or so.
Past History
Past History
ED Past Medical History: Arrthythmia, CHF, Hypercholesterolemia and Other (BPH)
Social History
Tobacco: Non-smoker
Alcohol: None
Drug: None
Personal:
Living: assisted living
Review of Systems
Review of Systems
All Other Systems: ROS reviewed and negative except as documented in HPI and ROS
Phy Exam
Physical Exam
Physical Exam:
GENERAL: Alert , in no apparent distress, smiling and pleasant
Head: Right orbital contusion with superficial abrasion just around the eyebrow but no laceration
EYE: pupils equal and reactive, 4 mm bilateral, EOMI, no entrapment
NECK: Supple, no midline tenderness
ENT: o/p clr, mmm.
CARDIAC: Regular rate and rhythm .
LUNGS: Clear breath sounds bilaterally, no acute respiratory distress, no wheezes/rales/rhonchi
ABDOMEN: Soft, without focal tenderness, no r/g, no cvat
NEUROLOGICAL: Alert and oriented, no focal neuro deficits
SKIN: Warm and dry, skin tears to the right distal humerus and just proximal to the right patella. The distal humeral skin tear measures approximately 1-1/2 cm, the patellar skin tear measures less than half a centimeter
MUSCULOSKELETAL: No edema, well perfused. Nontender hematoma to the dorsal left. Patient allows for full range of motion without pain
PSYCH: Normal and appropriate interaction.
Scores
Heart Failure Risk
Heart Failure Risk Score: Not Applicable
Heart Score for Chest Pain Patients
STEMI patient?: Not applicable
Withdrawal Assessment of Alcohol
Withdrawal Assessment Completed?: Not applicable
Course
Orders/Labs/Results
Orders:
Orders
09/13/24 05:45
CT Cervical Spine W/o Iv Contr Urgent
Comment:
Reason For Exam: fall
CT Head W/o Iv Contrast Urgent
Comment:
Reason For Exam: fall
Vital Signs
Initial and Last Documented VS:
Initial Vital Signs
BP
114/80
09/13/24 05:08
Last Documented Vital Signs
Temp Pulse Resp BP Pulse Ox
98.0 F 78 20 114/80 94
09/13/24 05:15 09/13/24 05:15 09/13/24 05:15 09/13/24 05:15 09/13/24 05:45
MDM/Problems Addressed
Differential Diagnosis Includes:
Accidental fall, no concern for syncope, superficial skin tears, no evidence for extremity fracture, intracranial bleeding, calvarial fracture, concussion
MDM/Problems Addressed:
84-year-old male presenting to the ER for evaluation following an accidental fall trying to transition from bed to his wheelchair to get to the bathroom around 4 AM. Patient with superficial wounds and contusion/hematoma. CT scan of the head and
cervical spine ordered. Wound care provided with Steri-Strips and nonadherent dressing/gauze. Will contact patient's emergency contact and bridges pending remaining workup.
*Radiology
Radiology exam reviewed: radiology read reviewed
*Pulse Oximetry
Patient hypoxic: no
*Critical Care Note
Total Time (30-74mins, 75-104mins- exclusive of procedures): Not Applicable
Patient Management
Discussion with other providers: retirement staff
Escalation/DeEscalation of care consider admission/obs:
CT scans noted for age-related changes, no acute intracranial bleeding or cervical spine injuries noted. I contacted nursing staff at [facility] and notified them of findings as well as need for just continued wound care. Patient's daughter
was also notified and updated on findings as well. Will arrange for transport back to patient's residential. He is otherwise stable for discharge.
ED Attending Note
-
Portions of this chart may have been created with voice recognition software.� Occasional wrong word or��sound alike� substitutions may have occurred due to the inherent limitations of voice recognition software.
Discharge Plan
Departure
Patient Disposition: Long Term/SNF
Date of Disposition: 09/13/24
Time of Disposition: 08:16
Patient with high blood pressure during this ER visit?: No
Discharge Problem:
Accidental fall, Contusion of right orbit, Hematoma of left wrist, Skin tear of right upper extremity, Noninfected skin tear of right leg
Instructions: Wound Care (DC)
Prescriptions:
No Action
donepezil 5 mg Tablet
5 mg PO HS
prednisone 5 mg Tablet
5 mg PO DAILY
tamsulosin [Flomax] 0.4 mg Capsule
0.4 mg PO HS
simvastatin [Zocor] 20 mg Tablet
20 mg PO HS
finasteride 5 mg Tablet
5 mg PO DAILY
Eliquis 2.5 mg Tablet
2.5 mg PO BID Qty: 0 0RF
furosemide 40 mg Tablet
40 mg PO DAILY Qty: 0 0RF
metoprolol succinate 25 mg Tablet Extended Release 24 Hr
12.5 mg PO BID Qty: 0 0RF
Referrals:
UNKNOWN - PT DOES,NOT KNOW [Family Provider] -
Interventions
Interventions:
*Risk Screen - Suicide Last Done: 09/13/24 05:15
*General Assessment Last Done: 09/13/24 05:15
*Neglect/Abuse Screening Last Done: 09/13/24 05:15
*ED- Fall Risk Assessment Last Done: 09/13/24 05:15
*ED COVID-19 Vaccine History Last Done: 09/13/24 05:15
*Nursing Disposition Last Done: 09/13/24 11:19
ED-Musculoskeletal Assessment Last Done: 09/13/24 05:48
ED- Neurological Assessment Last Done: 09/13/24 05:48
ED-Skin Assessment Last Done: 09/13/24 05:48
Discharge Date and Time
Print Language: [place]
== END 2024-09-13 11:19 ==
LOC: EMR 05:06
PROVIDERS: EMERGENCY PHYSICIAN Student in an Organized Health Care Education/Training Program
DX: S05.11XA Contusion of eyeball and orbital tissues, right eye, initial encounter (principal); S41.111A Laceration without foreign body of right upper arm, initial encounter; S81.811A Laceration without foreign body, right lower leg, initial encounter; S60.212A Contusion of left wrist, initial encounter; W05.0XXA Fall from non-moving wheelchair, initial encounter; N40.0 Benign prostatic hyperplasia without lower urinary tract symptoms; I50.9 Heart failure, unspecified
CPT/HCPCS: 99285; 70450; 72125

== ENCOUNTER 2025-03-28 09:27 | Emergency (ER) | payer MEDICARE, OTHER, SELFPAY ==
--- NOTE | 2025-03-28 09:37 | ED.GENMED ---
History of Present Illness
General
Chief Complaint: Head Injury
Source: patient
Exam Limitations: none
Time Seen by Provider: 03/28/25 09:29
Nursing documentation reviewed up to this point in time: agreed with
History of Present Illness
History of Present Illness:
The patient is an 84-year-old man with a past medical history of CHF and A-fib, on Eliquis, who arrives from [facility] after an unwitnessed fall. Patient reports that he got up out of bed to use the bathroom and held onto a wheelchair for
stability. Unfortunately, the wheelchair was not locked and it rolled backwards, causing him to fall. Patient reports that he fell onto his left side. He hit the back of his left head. Patient has a contusion of his left scalp area, abrasion of
his left upper back, and small skin tear of lateral left knee. Patient complains of no pain. He denies headache, neck pain, chest pain, shortness of breath, and abdominal pain. Patient denies back pain. Patient denies vision changes, dizziness,
nausea, vomiting or any other concerns. He reports he feels completely well.
Past History
Past History
ED Past Medical History: Arrthythmia, CHF, Hypercholesterolemia and Other (BPH)
ED Past Surgical History: Other
Social History
Tobacco: Non-smoker
Alcohol: None
Drug: None
Personal:
Living: assisted living
Employment: Other
Family History
Family History: Other
Review of Systems
Review of Systems
Allergies reviewed?: Yes
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
All Other Systems: ROS reviewed and negative except as documented in HPI and ROS
Constitutional: Reports no symptoms
EENT: Reports no symptoms
Respiratory: Reports no symptoms
Cardiac: Reports no symptoms
ABD/GI: Reports no symptoms
: Reports no symptoms
Musculoskeletal: Reports no symptoms
Neurological: Reports other (Skin tear left knee area)
Endocrine: Reports no symptoms
Hematologic/Lymphatic: Reports no symptoms
Psychiatric: Reports no symptoms
Phy Exam
Physical Exam
Physical Exam:
Physical Exam
General: no apparent distress, not acutely ill. Smiling, conversational, alert and oriented x 3
Neck: supple. Nontender C-spine. Mild contusion left parietal scalp
Heart: s1/s2 regular rate and rhythm, patient able to take deep breaths without any reproducible pain in chest. Mild left lower scapular abrasion without any tenderness to the area
Lungs: no acute respiratory distress. clear bilaterally
Abdomen: Soft, nontender
Neuro: alert and oriented. no focal neurological deficits. 5 out of 5 strength in all extremities. Equal sensation bilaterally. PERRL
Skin: Small left lateral knee skin tear. Mild left scapular area abrasion
Psychiatric: well kept. interactive and cooperative
Extremities: Nontender upper and lower extremities. Full range of upper and lower extremities without any areas of pain, swelling or deformity. Nontender pelvis and hips
Course
Orders/Labs/Results
Orders:
Orders
03/28/25 09:37
CT Head W/o Iv Contrast Urgent
Comment:
Reason For Exam: hit head, on Eliquis
03/28/25 09:[address] Non Medication Order As Directed
Physician Order: BP please
Vital Signs
Initial and Last Documented VS:
Initial Vital Signs
Temp Pulse Pulse Ox
97.9 F 67 95
03/28/25 09:31 03/28/25 09:31 03/28/25 09:31
Last Documented Vital Signs
Temp Pulse BP Pulse Ox
97.9 F 67 103/52 94
03/28/25 09:31 03/28/25 09:31 03/28/25 11:00 03/28/25 11:00
MDM/Problems Addressed
Differential Diagnosis Includes:
Subdural hematoma, subarachnoid hemorrhage, scalp contusion
MDM/Problems Addressed:
Patient presents after acute trip and fall with acute scalp contusion
Chronic conditions affecting care: Other (CHF)
Acute Exacerbation and/or Progression of Chronic Illness:
Patient is breathing completely comfortably with clear breath sounds. There is no sign of acute CHF
*Radiology
Radiology exam reviewed: radiology read reviewed
*Pulse Oximetry
SaO2: 95
Oxygen Mode of Delivery: Room air
Patient hypoxic: no
Comment: 95% on room air. Not hypoxic
*EKG
Interpreted by ED Provider?: NA
*Tread Cutter Interpretation
Rate: Tread Cutter- N/A
*Critical Care Note
Total Time (30-74mins, 75-104mins- exclusive of procedures): Not Applicable
Data Reviewed
Review of Other/Old Records Reveals: Labs (Labs reviewed from May 31, 2024 which showed elevated BUN and carbon dioxide)
Source: patient and ambulance crew
Patient Management
Social determinants of health affecting care: Living situation and Strong social support
Update Note
Update Note:
11:25 AM patient resting comfortably without any complaints. [facility] contacted and report they could observe patient for next few hours and bring him back to the ED for any concerns of headache or mental status changes
ED Attending Note
-
Portions of this chart may have been created with voice recognition software.� Occasional wrong word or��sound alike� substitutions may have occurred due to the inherent limitations of voice recognition software.
Discharge Plan
Departure
Patient Disposition: Home (Routine Discharge)
Date of Disposition: 03/28/25
Time of Disposition: 11:24
Patient with high blood pressure during this ER visit?: No
Condition: Good
Covid-19: Not Applicable
Discharge Problem:
Closed head injury, Contusion of scalp
Instructions: Minor head injury in adults - ED (DC)
Prescriptions:
No Action
donepezil 5 mg Tablet
5 mg PO HS
prednisone 5 mg Tablet
5 mg PO DAILY
tamsulosin [Flomax] 0.4 mg Capsule
0.4 mg PO HS
simvastatin [Zocor] 20 mg Tablet
20 mg PO HS
finasteride 5 mg Tablet
5 mg PO DAILY
Eliquis 2.5 mg Tablet
2.5 mg PO BID Qty: 0 0RF
furosemide 40 mg Tablet
40 mg PO DAILY Qty: 0 0RF
metoprolol succinate 25 mg Tablet Extended Release 24 Hr
12.5 mg PO BID Qty: 0 0RF
Referrals:
UNKNOWN - PT DOES,NOT KNOW [Family Provider]
Activity Restrictions/Additional Instructions:
Please return with any headache, nausea, vomiting, dizziness or any other concerns.
Interventions
Interventions:
*Risk Screen - Suicide Last Done: 03/28/25 09:31
*General Assessment Last Done: 03/28/25 09:31
*Neglect/Abuse Screening Last Done: 03/28/25 09:31
*ED- Fall Risk Assessment Last Done: 03/28/25 09:45
*ED COVID-19 Vaccine History Last Done: 03/28/25 09:45
*ED Influenza Vaccine History Last Done: 03/28/25 09:45
ED- Neurological Assessment Last Done: 03/28/25 09:45
ED-Skin Assessment Last Done: 03/28/25 09:45
Discharge Date and Time
Print Language: [place]RI[place]
[2025-03-28 09:39] VITALS: BP 100/61
[2025-03-28 09:45] VITALS: BMI 23.3
[2025-03-28 10:00] VITALS: BP 105/62
[2025-03-28 10:56] VITALS: BP 127/72
[2025-03-28 11:00] VITALS: BP 103/52
[2025-03-28 12:00] VITALS: BP 92/59
[2025-03-28 12:40] VITALS: BP 97/50
== END 2025-03-28 13:00 | disposition home or self-care (01) ==
LOC: EMR 09:27
PROVIDERS: EMERGENCY PHYSICIAN Emergency Medicine; FAMILY PHYSICIAN Family Medicine
DX: S00.03XA Contusion of scalp, initial encounter (principal); S09.90XA Unspecified injury of head, initial encounter; S80.02XA Contusion of left knee, initial encounter; S20.412A Abrasion of left back wall of thorax, initial encounter; S80.212A Abrasion, left knee, initial encounter; S00.01XA Abrasion of scalp, initial encounter; W18.39XA Other fall on same level, initial encounter; Y92.89 Other specified places as the place of occurrence of the external cause; I50.9 Heart failure, unspecified; I48.91 Unspecified atrial fibrillation; N40.0 Benign prostatic hyperplasia without lower urinary tract symptoms; E78.00 Pure hypercholesterolemia, unspecified; F03.90 Unspecified dementia, unspecified severity, without behavioral disturbance, psychotic disturbance, mood disturbance, and anxiety; M19.90 Unspecified osteoarthritis, unspecified site; Z79.01 Long term (current) use of anticoagulants
CPT/HCPCS: 99284; 70450